=== PATIENT | female | born 2005 ===

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

== ENCOUNTER 2025-04-23 17:34 | Observation (INO) | payer OTHER ==
[~2025-04-23] VITALS: Ht 167.6 cm; Wt 65.5 kg
[~2025-04-23 17:34] MED LIST changes: +ABILIFY MYCITE5 M2 PO; +MELA3 PO; +MULVITA PO; +NICO2 PO; +SERT100 PO; +TRAZ50 PO
[2025-04-23] MEDS ORDERED: NS 1,000 ML IV SCH ×2 (17:40→21:30)
[2025-04-23] MEDS ORDERED: Mag Sulfate 1 GM/D5% 100ML 100 ML IV ONE (18:20)
[2025-04-23 19:02] LABS: BASOPHILS ABSOLUTE AUTO 0.04 K/mm3 (0.00-0.23); BASOPHILS PERCENT AUTO 1 % (0-2); EOSINOPHILS ABSOLUTE AUTO 0.04 K/mm3 (0.00-0.68); EOSINOPHILS PERCENT AUTO 1 % (0-6); Hematocrit 45.9 % (33.0-51.0); Hemoglobin 15.1 g/dL (11.5-16.0); IMMATURE GRAN ABSOLUTE AUTO 0.02 K/mm3 (0.00-0.10); IMMATURE GRAN PERCENT AUTO 0 % (0-1); LYMPHOCYTES ABSOLUTE AUTO 2.11 K/mm3 (0.84-5.20); LYMPHOCYTES PERCENT AUTO 32 % (21-46); MONOCYTES ABSOLUTE AUTO 0.41 K/mm3 (0.16-1.47); MONOCYTES PERCENT AUTO 6 % (4-13); Mean Corpuscular HGB Conc 32.9 g/dL (31.5-36.5); Mean Corpuscular Volume 92 fL (80-100); NEUTROPHILS ABSOLUTE AUTO 4.02 K/mm3 (1.96-9.15); NEUTROPHILS PERCENT AUTO 61 % (41-73); NRBC ABSOLUTE 0.00 K/mm3 (0.00-0.02); NRBC Auto 0.0 /100 WBC (0.0-0.2); Platelet Count 275 K/mm3 (150-400); RDW Coefficient Variation 12.8 % (11.7-14.2); RDW Standard Deviation 43.3 fL (35.1-46.3)
[2025-04-23 19:23] LABS: Ethanol (Alcohol), Blood, Med <3 mg/dL; Salicylate <1.7 mg/dL (2.8-20.0); Thyroid Stimulating Hormone 3.370 uIU/mL (0.360-4.800)
[2025-04-23 19:26] LABS: Acetaminophen, Random <2.0 ug/mL (10.0-30.0); Alanine Aminotransfer (ALT/SGP 19 U/L (12-78); Albumin, Blood 4.2 g/dL (3.4-5.0); Albumin/Globulin Ratio 1.2 (0.8-1.8); Anion Gap 11 mmol/L (3-11); Aspartate Aminotrans (AST/SGOT 19 U/L (12-37); Bilirubin, Total 0.4 mg/dL (0.1-1.0); Blood Urea Nitrogen 11 mg/dL (8-21); CO2, Blood 22 mmol/L (21-32); Calcium, Blood 9.3 mg/dL (8.5-10.1); Chloride, Blood 106 mmol/L (98-108); Creatinine, Blood 0.73 mg/dL (0.40-1.00); Globulin, Blood 3.5 g/dL (2.2-4.0); Glucose, Blood 94 mg/dL (70-99); Potassium, Blood 3.5 mmol/L (3.5-5.5); Sodium, Blood 135 mmol/L (136-145); Total Protein, Blood 7.7 g/dL (6.4-8.2)
[2025-04-23] MEDS ORDERED: FLU VACC TS2025-26(6MOS UP)/PF 45 MCG/0.5 ML SYRINGE IM SCH (21:30)
[2025-04-23] MEDS ORDERED: Mag Sulfate 1 GM/D5% 100ML 100 ML IV STA (21:54)
[2025-04-23 23:54] VITALS: BP 110/64
[2025-04-24 03:57] LABS: Hematocrit 34.5 % (33.0-51.0); Hemoglobin 11.4 g/dL (11.5-16.0); Mean Corpuscular HGB Conc 33.0 g/dL (31.5-36.5); Mean Corpuscular Volume 92 fL (80-100); NRBC ABSOLUTE 0.00 K/mm3 (0.00-0.02); NRBC Auto 0.0 /100 WBC (0.0-0.2); Platelet Count 222 K/mm3 (150-400); RDW Coefficient Variation 12.9 % (11.7-14.2); RDW Standard Deviation 43.7 fL (35.1-46.3)
[2025-04-24 04:20] VITALS: BP 97/58
[2025-04-24 04:26] LABS: Anion Gap 9.0 mmol/L (3-11); Blood Urea Nitrogen 9.0 mg/dL (8-21); CO2, Blood 22.0 mmol/L (21-32); Calcium, Blood 7.7 mg/dL (8.5-10.1); Chloride, Blood 114.0 mmol/L (98-108); Creatinine, Blood 0.64 mg/dL (0.40-1.00); Glucose, Blood 82.0 mg/dL (70-99); Magnesium, Blood 2.1 mg/dL (1.6-2.4); Potassium, Blood 3.8 mmol/L (3.5-5.5); Sodium, Blood 141.0 mmol/L (136-145)
[2025-04-24] MEDS ORDERED: Calcium Gluconate 10% 1,000 MG in NS 50 ML IV ONE (05:15)
[2025-04-24] MEDS ORDERED: CALCIUM GLUC IN NACL, ISO-OSM 50 ML IV ONE (05:40)
[2025-04-24] MEDS ORDERED: NS 250 ML IV PRN (06:15)
--- NOTE | 2025-04-24 07:23 | NUR ---
SHIFT SUMMARY: PT A&OX4 CALM AND COOPERATIVE. PT IS SOLMULENT BUT FOLLOWS COMMANDS AND ABLE TO ANSWER SOME QUESTIONS. VSS ON RA. NO URINE OUTPUT DURING SHIFT. BLADDER SCAN COMPLETED. AMOUNT SHOWED WAS 243 ML. REPEAT EKG COMPLETED. POISON CONTROL CONSULTED AND ADVISED TO KEEP MG >2, K >4, AND CA ON THE HIGHER SIDE OF NORMAL. K: 3.8 AND CA: 7.7. MD NOTIFIED AND REPLACEMENT ORDERED. MEDICATED PER EMAR. PT MENTATION BEGINNING TO IMPROVE T/O SHIFT. PT KEPT NPO AND BEDREST D/T MENTATION. SUICIDE PRECAUTIONS IN PLACE. 1:1 SITTER. PSYCH CONSULT TODAY. BED IS LOW AND LOCKED. CONTINUE WITH CURRENT PLAN OF CARE.
--- NOTE | 2025-04-24 08:05 | NUR ---
PROVIDER CONSULT CALLED INTO [facility]INA SWAN AT APPROX 0800, MD SWAN ORDERED THAT WE DC HOME MED SERTALINE.
[2025-04-24 08:34] VITALS: BP 107/66
[2025-04-24] MEDS ORDERED: Enoxaparin 40 MG/0.4 ML SYR SC SCH (09:00)
[2025-04-24] MEDS ORDERED: Multivitamins 1 Tab PO SCH (09:00)
[2025-04-24 09:29] LABS: U Amphetamine Screen Not Detected
[2025-04-24 09:30] LABS: U Barbiturate Screen Not Detected; U Benzodiazapine Screen Not Detected; U Buprenorphine Screen Not Detected; U Cannabinoids Screen DETECTED; U Cocaine Screen Not Detected; U Methadone Screen Not Detected; U Methamphetamine Screen DETECTED; U Opiates Screen Not Detected; U Oxycodone Screen Not Detected; U Phencyclidine Screen Not Detected
--- NOTE | 2025-04-24 10:32 | NUR ---
POISON CONTROL: PHONE NUMBER: [phone] OPTION 4 MAUREEN FROM POISON CONTROL CALLED AT APPROX 1020 WITH RECOMMENDATION TO FOLLOW ELECTROLYTE LABS ONCE DAILY. MD SAUL NOTIFIED.
[2025-04-24 11:22] VITALS: BP 89/52
--- NOTE | 2025-04-24 11:33 | NUR ---
SOFT BP BP 89/52 W/MAP OF 63, PT ASYMPTOMATIC, DENIES CHEST PAIN OR PRESSURE, DIZZINESS OR LIGHTHEADEDNESS, MD SAUL NOTIFIED.
[2025-04-24 16:02] VITALS: BP 97/61
--- NOTE | 2025-04-24 16:50 | NUR ---
DISCHARGE: EARLY IN SHIFT PT ENDORSED SI, WHEN ASKED LATER SHE DENIED SI BUT IT APPEARED TO BE AN ATTEMPT TO CUT THE CONVERSATION SHORT. A/O X4, PLEASANT AND COOPERATIVE WITH CARE, ABLE TO COMMUNICATE NEEDS, WITHDRAWN AND FLAT AFFECT, ANSWERS SOME QUESTIONS AND IGNORES SOME. NSR, SOFT BP'S, MAP >60, PT ASYMPTOMATIC WITH SOFT PRESSURES, DENIES CHEST PAIN, PRESSURE, AND DIZZINESS. SPO2 >92% ON RA, DENIES SOB. PT LEFT THE UNIT IN A WC AND WITHOUT INCIDENT AT APPROX [address] [facility] STAFF, [facility] STAFF HAS ALL PT BELONGINGS.
[2025-04-24] MEDS ORDERED: ABILIFY5 MG PO (17:20)
[2025-04-24] MEDS ORDERED: ZOLOFT10013 (17:20)
[2025-04-24] MEDS ORDERED: TRAZ50 PO (17:21)
== END 2025-04-24 16:40 ==
LOC: ER 17:34 → PCU 17:35
PROVIDERS: Emergency Medicine; Nurse Practitioner Acute Care; ADMIT Internal Medicine
DX: T43.212A Poisoning by selective serotonin and norepinephrine reuptake inhibitors, intentional self-harm, initial encounter (principal); R40.0 Somnolence; F31.9 Bipolar disorder, unspecified; I45.81 Long QT syndrome; E87.1 Hypo-osmolality and hyponatremia; F15.11 Other stimulant abuse, in remission; Z79.899 Other long term (current) drug therapy; Z88.0 Allergy status to penicillin
CPT/HCPCS: 36415; 80048; 80053; 80320; 83735; 84439; 84443; 84703; 85025; 85027; 93005; 93010; 94762; 96365; 96375; 96376; 99285-25; A9270; G0378; G0480; J0612; J3475; J3480; J7030; J7050

== ENCOUNTER 2025-04-24 14:26 | Inpatient (IN) | payer OTHER ==
[~2025-04-24] VITALS: Ht 165.1 cm; Wt 71.8 kg
[2025-04-24 16:53] VITALS: BP 120/86
[2025-04-24 17:01] VITALS: BP 120/86
[2025-04-24] MEDS ORDERED: ABILIFY5 MG PO (17:20)
[2025-04-24] MEDS ORDERED: ZOLOFT10013 (17:20)
[2025-04-24] MEDS ORDERED: TRAZ50 PO (17:21)
[2025-04-24] MEDS ORDERED: Ondansetron 4 MG SoluTab MM PRN (17:45)
[2025-04-24] MEDS ORDERED: Polyethylene Glycol 3350 17 gm PO PRN (17:45)
[2025-04-24] MEDS ORDERED: FLU VACC TS2025-26(6MOS UP)/PF 45 MCG/0.5 ML SYRINGE IM SCH (17:50)
[2025-04-24] MEDS ORDERED: Aluminum Hydroxide 320MG/5ML 473 ML PO PRN (17:50)
--- NOTE | 2025-04-24 18:14 | NUR ---
ADMISSION NOTE: PT [facility] PT IS ALERT, ORIENTED AND COOPERATIVE WITH CARE. 2 RN SKIN CHECK COMPLETED WITH JARED AGUILAR. -PT HAS 1 RING ON HER RIGHT HAND AND 2 RINGS ON HER LEFT HAND THAT SHE IS UNABLE TO REMOVE- PT WAS ADMITTED FOR AN INTENTIONAL OVERDOSE ON 20-25 50 MG TRAZADONE TABLETS. SHE DOES NOT PROVIDE MUCH INSIGHT INTO WHAT LED TO HER SUICIDE ATTEMPT. STATES "THE LAST COUPLE OF WEEKS HAVE BEEN ROUGH". SHE DOES NOT PROVIDE FURTHER INFORMATION ON THE SUBJECT. SHE CURRENTLY ENDORSES SI BUT DENIES PLAN OR INTENT. SHE STATES THAT SHE WILL BE SAFE WHILE IN THE U. HX OF PAST ATTEMPT IN SEPTEMBER BY CUTTING HER WRISTS. REPORTS DAILY METH AND MARIJUANA USE, OCCASIONAL ETOH. PT ORIENTED TO THE UNIT AND HER ROOM AND PROVIDED WITH DINNER. STATES THAT SHE LIVES WITH HER GRANDPARENTS AND WAS WORKING AT [employer]. SHE IS CONCERNED THAT SHE HAS LOST HER JOB.
[2025-04-24 20:17] VITALS: BP 104/57
--- NOTE | 2025-04-25 04:31 | NUR ---
SHIFT SUMMARY PATIENT IN BED SLEEPING AT BEGINNING OF SHIFT, AWAKENS TO VERBAL AND TACTILE STIMULI. OPENING EYES BRIEFLY, ANSWERING WITH 1-2 WORDS APPEARS IRRITATED WITH BEING WOKEN UP. FALLING BACK TO SLEEP WHEN UNDISTURBED. DENIES SI, HI, OR AVTH. 1 RING TO RIGHT HAND AND 2 RINGS TO LEFT HAND REMAIN IN PLACE. NO PRN MEDICATIONS GIVEN DURING THE NIGHT. PATIENT CONTINUES TO BE SLEEPING WELL T/O NIGHT RESP EVEN AND UNLABORED, REPOSITIONING SELF FOR COMFORT. CONTINUE TO MONITOR Q15MIN.
[2025-04-25 08:52] LABS: CHOL/HDL RATIO 2.8; Cholesterol 152 mg/dL (50-200); HDL Cholesterol 54 mg/dL (>39); LDL/HDL RATIO 1.5; Low Density Lipoprotein Chol 79 mg/dL (0-110); Triglycerides 95 mg/dL (30-140); Very Low Density Lipoprot Chol 19 mg/dL (6-28)
[2025-04-25] MEDS ORDERED: Multivitamins 1 Tab PO SCH (09:00)
[2025-04-25 12:55] VITALS: BP 119/82
--- NOTE | 2025-04-25 16:55 | NUR ---
SHIFT SUMMARY: PT IS ALERT, ORIENTED AND COOPERATIVE WITH CARE. SHE STATES THAT SHE IS STILL HAVING SUICIDAL THOUGHTS BUT DENIES PLAN OR INTENT AT THIS TIME. PT APPEARS TIRED BUT STATES THAT SHE SLEPT WELL LAST NIGHT. SHE HAS APPORPRIATE EYE CONTACT AND A DEPRESSED AFFECT. PT PROVIDED WITH HYGEINE SUPPLIES AND SHOWERED THIS AM. SHE HAS BEEN COMPLIANT WITH MEDCIATIONS. PT HAD A VISIT WITH HER FAMILY WHICH APPEARED TO GO WELL. SHE WAS PRESENT FOR MEALS AND SPENT MUCH OF THE DAY RESTING IN HER ROOM ON HER BED. MONITORED WITH Q 15 MIN CHECKS FOR SAFETY PER UNIT PROTOCOL.
--- NOTE | 2025-04-26 04:00 | NUR ---
SHIFT SUMMARY Patient slept through the shift with exception of when this nurse woke her for a brief evening assessment. Day stated she still is having fleeting thoughts of suicide, but without a plan or intent. She denied Hi and AVTH at that time. She did scream in her sleep last night (twice), but was sleeping when we went in to check on her. Will continue close monitoring every 15 minutes for comfort and safety per unit protocol.
--- NOTE | 2025-04-26 15:58 | NUR ---
PT TO NURSING STATION, SHE IS CRYING AND ASKING TO TALK. SHE TOLD THIS RN REPEATEDLY THAT SHE WANTS TO LEAVE THIS EARTH AND . SHE ASK FOR HELP ENDING HER LIFE. THIS RN USES ACTIVE LISTENING AND PATIENT OPENS UP THAT SHE IS HAVING DELEUSIONS THAT SHE IS IDRIS JAMES. SHE BELIEVES THAT WHEN SHE SEES HIM ON TV THAT THAT IS HER, SHE STATES THAT SHE KNOWS IT SOUNDS "CRAZY" BUT SHE "IS" DONALT JACOB. THIS RN THANKED HER FOR BEING HONEST AND ENCOURAGED HER TO CONTINUE TO TELL STAFF WHEN SHE IS FEELING THIS WAY. DR. SWAN NOTIFIED. ORDERS RECIEVED TO INCREASE ABILIFY FROM 5MG DAILY TO 15MG. EMAR UPDATED
--- NOTE | 2025-04-26 16:12 | NUR ---
PRN VISTRIL GIVEN FOR MASS OF 8. PLEASE SEE PREVIOUS NOTE
--- NOTE | 2025-04-26 16:38 | NUR ---
VISTRIL NOT EFFECTIVE. PRN ZYPREXA GIVEN FOR MASS SCORE GREATER THAN 9. PT IN BED RESTING EYES OPEN AT THIS TIME
--- NOTE | 2025-04-26 17:24 | NUR ---
SHIFT SUMMARY: PT IS ALERT, ORIENTED AND COOPERATIVE. SHE INITIALLY DENIED SI, HI AND AVH. SHE STATED THIS AM THAT SHE WAS FEELING "MUCH BETTER THAN YESTERDAY". SEE ABOVE NOTES FROM SRAVANI AGUILAR FOR CHANGES. PT PROVIDED URINE SAMPLE WHICH WAS THIS RN DELIVERED TO LAB. SHE SPENT THE EVENING RESTING IN HER ROOM ON HER BED.
[2025-04-26 17:33] LABS: Source, Urine Clean Catch
[2025-04-26 17:40] LABS: Bilirubin, Urine Neg (Neg); Color, Urine Yellow (P-Yellow); Glucose Qualitative, Urine Neg (Neg); Ketones, Urine 1+ (Neg); Leukocyte Esterase, Urine Neg (Neg); Protein, Urine Neg (Neg); Specific Gravity, Urine 1.015 (1.003-1.022); Urobilinogen, Urine NORM (Normal)
[2025-04-26 17:51] LABS: Red Blood Cells, Urine 0-2 /hpf (0-2); White Blood Cells, Urine 0-2 /hpf (0-5)
--- NOTE | 2025-04-27 04:42 | NUR ---
SHIFT SUMMARY Patient again slept through the night with exception of allowing this nurse to wake her for a brief assessment. Patient admits fleeting suicidal ideation, but last night, no HI or AVTH noted. sleep hours thus far nine. Will continue close monitoring every 15 minutes for comfort and safety per unit protocol
[2025-04-27 08:43] VITALS: BP 119/83
--- NOTE | 2025-04-27 18:03 | NUR ---
SHIFT SUMMARY PT PRESENTS ALERT AND ORIENTED WITH GOOD EYE CONTACT, CLEAR SPEECH WITH NORMAL TONE AND GOOD HYGIENE. PT HAS BEEN UP/DOWN ALL DAY AND INVOLVED IN THE MILIEU, GROUPS & TV TIME. SHE HAS DENIED SI/HI/AVH. MEDICATED WITH VISTARIL FOR 5/10 STATED ANXIOUSNESS AND A MASS SCORE OF 3. PT HAS RECEIVED Q15 MIN VISUAL SAFETY CHECKS THROUGHOUT THIS SHIFT
[2025-04-27 20:56] VITALS: BP 118/79
--- NOTE | 2025-04-28 04:49 | NUR ---
Patient was in room all evening. Denied SI,HI and AVTH during evening assessment. Declined snack time and had no requests of this nurse or the [facility]. Will continue close monitoring every 15 minutes for comfort and safety.
[2025-04-28 08:13] VITALS: BP 112/83
--- NOTE | 2025-04-28 12:15 | NUR ---
MID SHIFT SUMMARY PT A/O X4; PLEASANT AND COOPERATIVE WITH CARE. PT DENIES SI, HI, AVTH. SHE DESCRIBES HER MOOD "GOOD" AND HER AFFECT IS BLUNTED. PT ATTENDED AFTERNOON GROUP.
--- NOTE | 2025-04-28 16:39 | NUR ---
Assumed care of this patient after lunch. Patient reported no si, hi, or hallucination. Patient has a calm affect and has been participating with peers today, in group and rec. Patient requested a PRN for anxiety around 1300. Parents of this patient visited this afternoon. Please also see mid shift summary from earlier today.
[2025-04-28 20:28] VITALS: BP 116/72
--- NOTE | 2025-04-29 04:01 | NUR ---
SHIFT SUMMARY PATIENT RESTING QUIETLY IN BED AT BEGINNING OF SHIFT, AWAKENS TO SLIGHT STIMULI AND WALKING THE ADAMS DURING ASSESSMENT. ANSWERING QUESTIONS CLEAR AND CONCISE, VERBALIZED THAT SHE FEELS "GOOD". DENIES SI, HI, OR AVTH. RINGS REMAIN IN PLACE, 1 TO RIGHT HAND AND 2 TO LEFT HAND. PATIENT STAYING UP FOR SNACK THEN BACK TO BED FALLING BACK TO SLEEP EASILY. CONTINUES TO BE SLEEPING AT THIS TIME RESP, EVEN AND UNLABORED. CONTINUE TO MONITOR Q15MIN
[2025-04-29 08:15] VITALS: BP 118/74
--- NOTE | 2025-04-29 12:25 | NUR ---
Spiritual Care Consult | Pt. request Meet with Pt. in a [facility] consult room. Pt. is pleasant. Facilitated a life review and listened with empathy, interest, and a calming presence. Pt. verbalized that isaías had not been a part of her life but that we was "open" to it. Considered some genral matters of isaías, but focused primarily on the Pts. family and school relationships. Prayed with Pt. at her request. Pt. 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
--- NOTE | 2025-04-29 13:47 | NUR ---
IMPORTANT DISCHARGE INFORMATION PATIENT DISCHARGING ON 04/30/25 AROUND 11AM. HER GRANDPARENTS WILL BE PICKING HER UP. SHE HAS A NEW ADDRESS: [facility] [address]. FOR ANY QUESTIONS OR CONCERNS YOU CAN CALL HER MOTHER "FELICITAS' AT . ALL PARTIES VERBALIZE AN UNDERSTANDING. FOLLOW UP WITH [facility]. PATIENT NEEDS TO RETURN HER NEW PATIENT PACKET TO ESTABLISH CARE. FOLLOW UP WITH [facility] NEEDED OPEN ACCESS OR CRISIS PHARMACY: [facility]
--- NOTE | 2025-04-29 16:44 | NUR ---
Patient is alert and orientated. she has a brighter affect today and her mood is described as "good". She states she has no anxiety, she is not feeling labile. She denies SI HI and hallucinations. Patient reports that she is feeling much better and is ready to go. She has been present on the unit, in groups, participating with staff and peers. Patient is on track to discharge tomorrow.
[2025-04-29 19:24] VITALS: BP 123/71
--- NOTE | 2025-04-30 04:12 | NUR ---
SHIFT SUMMARY PATIENT UP IN MILIEU. CONVERSATION WITH SOFT VOICE ANSWERING QUESTIONS CLEAR AND CONCISE. VERBALIZED THAT "TODAY WAS A GOOD DAY". DENIES SI, HI, OR AVTH. REQUESTING MELATONIN FOR SLEEP. DENIES FEELING ANXIOUS "JUST WANT TO SLEEP TONIGHT" FAINT RAISED RASH TO RIGHT FA AREA DENIES NEED FOR CREAM. RINGS REMAIN IN PLACE 1 TO RIGHT HAND AND 2 TO LEFT HAND. GOING TO BED SHORTLY AFTER SNACK. APPEARS TO BE SLEEPING WELL T/O NIGHT RESP EVEN AND UNLABORED.
[2025-04-30 07:36] VITALS: BP 118/79
[2025-04-30] MEDS ORDERED: ABILIFY MYCITE10 M2 PO (09:50)
--- NOTE | 2025-04-30 13:17 | NUR ---
DISCHARGE NOTE DISCHARGE PACKET/EDUCATION REVIEWED W/ PATIENT AND FORM SIGNED. PT DENIES SI, HI, AVTH AND ENDORSED BEING "EXCITED" ABOUT DISCHARGE TODAY. BELONGINGS W/ PATIENT. NO ACUTE EVENTS TODAY.
== END 2025-04-30 11:15 | disposition home or self-care (01) | DRG 918 ==
LOC: BHU 14:26
PROVIDERS: ADMIT Psychiatry & Neurology Psychiatry
DX: T43.212A Poisoning by selective serotonin and norepinephrine reuptake inhibitors, intentional self-harm, initial encounter (principal); F31.30 Bipolar disorder, current episode depressed, mild or moderate severity, unspecified; Z88.0 Allergy status to penicillin; Z79.899 Other long term (current) drug therapy; Z90.89 Acquired absence of other organs; Z98.890 Other specified postprocedural states; X58.XXXA Exposure to other specified factors, initial encounter; Z79.1 Long term (current) use of non-steroidal anti-inflammatories (NSAID); Z23 Encounter for immunization
CPT/HCPCS: 36415; 80061; 81001; 83036; 96372; A9270; G0008